=== PATIENT | male | born 2005 | race Caucasian/White ===

== ENCOUNTER 2025-11-18 01:33 | Emergency (ER) | payer SELFPAY ==
[~2025-11-18] VITALS: Ht 182.9 cm; Wt 74.8 kg
[2025-11-18 01:48] VITALS: O2SAT 99
[2025-11-18 02:49] LABS: BASOPHILS % 1.0 % (0.0-2.0); EOSINOPHILS % 1.7 % (0.0-5.0); HEMATOCRIT. 42.9 % (42.0-52.0); HEMOGLOBIN. 14.2 g/dL (14.0-18.0); LYMPHOCYTES % 21.0 % (20.0-50.0); MEAN PLATELET VOLUME 9.9 fl (7.4-10.4); MONOCYTES % 8.6 % (2.0-8.0); NEUTROPHILS % 67.7 % (40.0-76.0); PLATELET 104 x1000/uL (130-400); RED BLOOD CELL COUNT 5.42 mill/uL (4.7-6.1); RED CELL DISTRIBUTION WIDTH 13.6 % (11.6-14.6)
[2025-11-18 03:00] VITALS: TEMP 36.8
[2025-11-18 03:05] LABS: CREATININE 1.4 mg/dL (0.6-1.3); UREA NITROGEN BLOOD 25 mg/dL (9-23)
[2025-11-18 03:06] LABS: ETHANOL BLOOD < 10 mg/dL (<10)
[2025-11-18] MEDS: HALOPERIDOL LACTATE 5MG/ML VIAL IM ONE (03:13)
[2025-11-18] MEDS: ONDANSETRON HCL 4MG/2ML INJ IV ONE (03:13)
[2025-11-18] MEDS: SODIUM CHLORIDE 0.9% 1,000 ML IV ONE (03:13)
[2025-11-18] MEDS ORDERED: ONDA4TAB50 MT (04:14)
[2025-11-18 04:23] VITALS: BP 111/50; PULSE 81; RESP 16; O2SAT 100
== END 2025-11-18 04:31 | disposition home or self-care (01) ==
LOC: ER 02:29
DX: R11.16 Cannabis hyperemesis syndrome (principal); Z79.899 Other long term (current) drug therapy
CPT/HCPCS: 80048; 80320; 85025; 36415; 93005; 96361; 96372; 96374; 99284; J1630; J2405; J7030; G0480